=== PATIENT | male | born 1990 | race Caucasian/White ===

== ENCOUNTER 2023-04-27 07:05 | Outpatient (CLI) | payer BC, SELFPAY ==
--- NOTE | 2023-04-27 08:11 | W.ANESCHARGE ---
Anesthesia Charges Start Date/Time Anesthesia Start Date: 04/27/23 Anesthesia Start Time: 07:45 Stop Date/Time Anesthesia Stop Date: 04/27/23 Anesthesia Stop Time: 08:10
== END 2023-04-27 07:06 | disposition home or self-care (01) ==
LOC: OP CLINIC 07:06
PROVIDERS: PCP Family Medicine; Visit Provider Internal Medicine
DX: Z12.11 Encounter for screening for malignant neoplasm of colon (principal); Z80.0 Family history of malignant neoplasm of digestive organs
CPT/HCPCS: 00812; 45378; J2704